=== PATIENT | female | born 1970 | race Caucasian/White ===

== ENCOUNTER 2016-06-02 19:42 | Emergency (ER) | payer SELFPAY ==
[~2016-06-02 19:42] MED LIST: METOPROLOL PO; NORCO 5-325 TA1 EACH PO
--- NOTE | 2016-06-12 23:29 | ER ---
ADMIT: 06/02/2016 RM/LOC: ER [facility] MR#: [id number] [facility] [address], [place] [id number] RAMON KHAN [address] [facility] [address] [place] [address] Emergency Room Report SEX: F AGE: 45 : 1970 DATE: 06/02/2016 ADDENDUM: See T-sheet for complete H and P. A 45-year-old female, who came in to get evaluated for 2 bumps on her left leg that have been there for several days. She does have a history of varicose veins in both legs but has not had any risk factors recently that would predispose her to DVT. She has had a DVT before in her right leg which felt very different than the symptoms she is having now. She states these 2 bumps are not really painful. She does not have any fevers or chills. She does not have any new leg swelling. She also denies any chest pain, shortness of breath. She does stand for long periods of time on her feet at work. On examination, she has no cords. She does have 2 spots on her left leg; one on her anterior lower keyes and one on her medial popliteal area of her left leg that are less than 0.25 cm in size. They are very minimally tender. They are actually purplish colored, nonerythematous, not warm. She has no cords or any new swelling in her lower extremities. Her calves are nontender. She is diagnosed with varicose veins. She is encouraged to stop smoking, to use compression stockings when she stands at work, and to follow up with her regular physician with any concerns and return to the ER for any worsening symptoms. Gregg Funez MD/ tino JOB #: [id number] CC: Gregg Funez MD, Attending Physician Aster Florez APRN-[employer], Family Physician
== END 2016-06-02 20:59 | disposition home or self-care (01) ==
LOC: ER 19:42
DX: I83.92 Asymptomatic varicose veins of left lower extremity (principal); Z86.718 Personal history of other venous thrombosis and embolism; F17.210 Nicotine dependence, cigarettes, uncomplicated; Z90.710 Acquired absence of both cervix and uterus